=== PATIENT | female | born 1935 | race Caucasian/White ===

== ENCOUNTER → 2020-05-11 | Outpatient (CLI) | payer MEDICARE | END | disposition home or self-care (01) | LOC: Rad HDHVI 08:17 | PROVIDERS: ATTEND Internal Medicine | DX: I10 Essential (primary) hypertension (principal); R06.02 Shortness of breath | CPT/HCPCS: 93306 ==

== ENCOUNTER → 2020-05-18 | Outpatient (CLI) | payer MEDICARE ==
[~2020-05-18] VITALS: Ht 168.9 cm; Wt 62.6 kg
[~2020-05-18] MED LIST: ADENOSINE 53 MG in GIVE UN-DILUTED 0 ML IV ONE; ADENOSINE 90 MG/30 ML INJ IV ONE
== END | disposition home or self-care (01) ==
LOC: Rad HDHVI 13:51
PROVIDERS: ATTEND Internal Medicine Cardiovascular Disease
DX: I10 Essential (primary) hypertension (principal); R06.02 Shortness of breath; Z82.49 Family history of ischemic heart disease and other diseases of the circulatory system
CPT/HCPCS: 78452; 93005; 96374; 96375; A9500; J0153

== ENCOUNTER 2021-12-22 15:26 | Inpatient (IN) | payer MEDICARE, OTHER ==
[~2021-12-22] VITALS: Ht 162.6 cm; Wt 65.0 kg
[2021-12-22] MEDS ORDERED: SODIUM CHLORIDE 0.9% 1,000 ML IV ONE (16:00)
[2021-12-22] MEDS ORDERED: ASPirin 81 mg TAB PO ONE (16:00)
[2021-12-22] MEDS ORDERED: SODIUM CHLORIDE 0.9% 1,000 ML IVB ONE (16:00)
[2021-12-22 17:49] LABS: Basophils # (auto) 0 10 ^3/uL (0-0.2); Basophils % (auto) 0.5 % (0.0-2.0); Eosinophils # (auto) 0 10 ^3/uL (0-0.8); Eosinophils % (auto) 0.6 % (0.0-7.0); Hemoglobin 13.3 g/dL (12.2-16.2); Lymphocytes # (auto) 1.1 10 ^3/uL (0.4-5.4); Mean Corpuscular Hemoglobin 30.8 pg (28.0-32.0); Mean Corpuscular Hgb Conc. 33.2 g/dL (32.0-36.0); Monocytes # (auto) 0.6 10 ^3/uL (0-1.3); Monocytes % (auto) 7.6 % (0.0-12.0); Neutrophils # (auto) 5.8 10 ^3/uL (1.6-8.6); Neutrophils % (auto) 76.3 % (37.0-80.0); Red Cell Distribution Width 13.2 % (11.8-14.3); White Blood Cell 7.7 10^3/uL (4.4-10.8)
[2021-12-22 18:05] LABS: INR 1.06 (0.9-1.15); Partial Thromboplastin Time 27.8 sec (24.6-33.4)
[2021-12-22 18:07] LABS: Albumin 3.8 g/dL (3.4-5.0); Calcium 8.8 mg/dL (8.5-10.1); Magnesium 2.5 mg/dL (1.6-2.6); Potassium 4.4 mmol/L (3.5-5.1)
[2021-12-22 18:12] LABS: BUN/Creatinine Ratio 18.8; Bilirubin, Total 0.4 mg/dL (0.2-1.0); Total Protein 6.5 g/dL (6.4-8.2)
[2021-12-22] MEDS ORDERED: SODIUM CHLORIDE 0.9% 1,000 ML IV SCH (21:00)
[2021-12-22] MEDS ORDERED: ONDANSETRON HCL 4 MG/2 ML VIAL IV PRN (21:00)
[2021-12-22] MEDS ORDERED: HYDROcodone-ACET 5/325MG TAB PO PRN (21:00)
[2021-12-22] MEDS ORDERED: DOCUSATE SOD 100 MG CAP PO PRN (21:00)
[2021-12-22] MEDS ORDERED: ACETAMINOPHEN 325 MG TAB PO PRN (21:00)
[2021-12-22] MEDS ORDERED: NITROGLYCERIN 0.4 MG SL TAB SL PRN (22:00)
[2021-12-22] MEDS ORDERED: MORPHINE SULFATE INJ 2 MG/ml SYRG IV PRN (22:00)
[2021-12-23 06:07] LABS: Albumin 3.9 g/dL (3.4-5.0); Calcium 8.5 mg/dL (8.5-10.1); Potassium 3.6 mmol/L (3.5-5.1)
[2021-12-23 06:11] LABS: BUN/Creatinine Ratio 16.2; Bilirubin, Total 0.8 mg/dL (0.2-1.0); Total Protein 6.1 g/dL (6.4-8.2)
[2021-12-23 06:55] LABS: Basophils # (auto) 0 10 ^3/uL (0-0.2); Basophils % (auto) 0.4 % (0.0-2.0); Eosinophils # (auto) 0.1 10 ^3/uL (0-0.8); Eosinophils % (auto) 1.6 % (0.0-7.0); Hematocrit 38.7 % (36.0-46.0); Hemoglobin 13.5 g/dL (12.2-16.2); Lymphocytes # (auto) 2.1 10 ^3/uL (0.4-5.4); Lymphocytes % (auto) 32.1 % (10.0-50.0); Mean Corpuscular Hemoglobin 32.1 pg (28.0-32.0); Mean Corpuscular Hgb Conc. 34.8 g/dL (32.0-36.0); Mean Corpuscular Volume 92.1 fL (80.0-100.0); Monocytes # (auto) 0.6 10 ^3/uL (0-1.3); Monocytes % (auto) 8.7 % (0.0-12.0); Neutrophils # (auto) 3.7 10 ^3/uL (1.6-8.6); Neutrophils % (auto) 57.2 % (37.0-80.0); Red Blood Cells 4.21 10^6/uL (4.0-5.20); Red Cell Distribution Width 13.3 % (11.8-14.3); White Blood Cell 6.5 10^3/uL (4.4-10.8)
[2021-12-23 06:58] LABS: Nucleated Red Blood Cells % 3.7 %
[2021-12-23] MEDS: FAMOTIDINE (10MG/ML) 2ML VL IV SCH (10:14)
[2021-12-23] MEDS: ASPirin 81 mg TAB PO SCH (10:14)
[2021-12-23 11:27] LABS: Urine Bacteria MOD /hpf (None Seen); Urine Blood Negative /uL (Negative); Urine Mucus FEW (None Seen); Urine Specific Gravity 1.012 (1.001-1.035); Urine WBC 26 /hpf (0 - 5)
[2021-12-23 11:36] LABS: Alcohol, Urine < 3.0 mg/dL (0-10); Amphetamine Screen, Urine NEGATIVE (NEGATIVE); Barbiturate Scree,Urine NEGATIVE (NEGATIVE); Benzodiazephine Screen, Urine NEGATIVE (NEGATIVE); Cannabinoid Screen, Urine NEGATIVE (NEGATIVE); Cocaine Screen, Urine NEGATIVE (NEGATIVE); Opiate Scree,Urine NEGATIVE (NEGATIVE); Phencyclidine Screen, Urine NEGATIVE (NEGATIVE)
[2021-12-23] MEDS ORDERED: cefTRIAXone 1GM/50ML D5W 50 ML IV ONE (13:00)
[2021-12-23 16:35] VITALS: BP 179/98
[2021-12-23] MEDS ORDERED: CLON0.1T PO (16:56)
[2021-12-23] MEDS ORDERED: HYDR25TA5 PO (16:56)
[2021-12-23] MEDS ORDERED: DILT360C6 PO (16:56)
[2021-12-23] MEDS ORDERED: LISI20TA28 PO (16:56)
[2021-12-23] MEDS ORDERED: cloNIDine HCL 0.1 MG TAB PO ONE (17:15)
[2021-12-23] MEDS: HCTZ 25 MG TAB PO SCH (17:17)
[2021-12-23] MEDS: LISINOPRIL 20 MG TAB PO SCH (21:17)
[2021-12-23 22:00] VITALS: BP 125/57
[2021-12-24 05:00] VITALS: BP 187/93
[2021-12-24] MEDS: HCTZ 25 MG TAB PO SCH (05:15)
[2021-12-24] MEDS: LISINOPRIL 20 MG TAB PO SCH ×2 (05:16→21:32)
[2021-12-24 06:34] VITALS: BP 178/82
[2021-12-24 06:52] LABS: Calcium 8.6 mg/dL (8.5-10.1); Potassium 4.4 mmol/L (3.5-5.1)
[2021-12-24 06:56] LABS: BUN/Creatinine Ratio 18.8
[2021-12-24 09:00] VITALS: BP 198/93
[2021-12-24] MEDS: cefTRIAXone 1GM/50ML D5W 50 ML IV SCH (09:25)
[2021-12-24] MEDS: FAMOTIDINE (10MG/ML) 2ML VL IV SCH (09:25)
[2021-12-24] MEDS: ASPirin 81 mg TAB PO SCH (09:25)
[2021-12-24] MEDS: cloNIDine HCL 0.1 MG TAB PO PRN (11:49)
[2021-12-24] MEDS ORDERED: DILT-40 PO (14:13)
[2021-12-24] MEDS ORDERED: CLON0.2T PO (14:13)
[2021-12-24 17:00] VITALS: BP 132/65
[2021-12-24 23:36] VITALS: BP 167/73
[2021-12-25] MEDS: cloNIDine HCL 0.1 MG TAB PO PRN (05:38)
[2021-12-25 05:49] VITALS: BP 191/91
[2021-12-25 06:15] VITALS: BP 159/72
[2021-12-25 09:00] VITALS: BP 138/70
[2021-12-25] MEDS: cefTRIAXone 1GM/50ML D5W 50 ML IV SCH (09:00)
[2021-12-25] MEDS: HCTZ 25 MG TAB PO SCH (09:00)
[2021-12-25] MEDS: LISINOPRIL 20 MG TAB PO SCH ×2 (09:00→21:42)
[2021-12-25] MEDS: ASPirin 81 mg TAB PO SCH (09:00)
[2021-12-25 13:00] VITALS: BP 135/67
[2021-12-25 17:23] VITALS: BP 156/93
[2021-12-25 22:00] VITALS: BP 168/88
[2021-12-26] MEDS: cloNIDine HCL 0.1 MG TAB PO PRN ×2 (04:57→16:37)
[2021-12-26 05:00] VITALS: BP 191/90
[2021-12-26 08:30] VITALS: BP 148/77
[2021-12-26] MEDS: cefTRIAXone 1GM/50ML D5W 50 ML IV SCH (10:27)
[2021-12-26] MEDS: ASPirin 81 mg TAB PO SCH (10:27)
[2021-12-26] MEDS: HCTZ 25 MG TAB PO SCH (10:27)
[2021-12-26] MEDS: LISINOPRIL 20 MG TAB PO SCH ×2 (10:27→21:49)
[2021-12-26 12:35] VITALS: BP 176/96
[2021-12-26] MEDS ORDERED: IOHEXOL 350 MG/ML 100ML IJ ONE (13:12)
[2021-12-26] MEDS ORDERED: LIDOCAINE 2%HCL (LOCAL ANESTH.) INJ 20ML MDV ONE (13:12)
[2021-12-26] MEDS ORDERED: HEPARIN SODIUM (PORCINE) 5000 UNITS/ML 1ML VIAL ONE (13:14)
[2021-12-26] MEDS ORDERED: ANGIOMAX 250 MG VIAL IV ONE (13:14)
[2021-12-26] MEDS ORDERED: SODIUM CHL 0.9% 0 ML ONE (13:15)
[2021-12-26] MEDS ORDERED: VERAPAMIL 2.5MG/ML INJ 2ML VIAL IV ONE (13:15)
[2021-12-26] MEDS ORDERED: MIDAZOLAM HCL 2MG/2ML 2ml VIAL (1mg/ml) ONE (13:15)
[2021-12-26] MEDS ORDERED: fentaNYL CITRATE 100 MCG/2 ML VL ONE (13:15)
[2021-12-26 16:25] VITALS: BP 197/85
[2021-12-26 21:50] VITALS: BP 138/63
[2021-12-27 05:13] VITALS: BP 171/83
[2021-12-27] MEDS: cloNIDine HCL 0.1 MG TAB PO PRN (05:39)
[2021-12-27 05:56] LABS: BUN/Creatinine Ratio 20.2; Calcium 8.4 mg/dL (8.5-10.1)
[2021-12-27 09:00] VITALS: BP 118/61
[2021-12-27] MEDS: cefTRIAXone 1GM/50ML D5W 50 ML IV SCH (10:29)
[2021-12-27] MEDS: HCTZ 25 MG TAB PO SCH (10:30)
[2021-12-27] MEDS: LISINOPRIL 20 MG TAB PO SCH (10:31)
[2021-12-27] MEDS: ASPirin 81 mg TAB PO SCH (10:33)
[2021-12-27 13:00] VITALS: BP 129/64
[2021-12-27 17:00] VITALS: BP 145/60
== END 2021-12-27 17:30 | disposition home or self-care (01) | DRG 286 ==
LOC: EDBD 15:26 → ER 15:32 → TELE 21:50 → TELE-WESTW 12-23 11:40
PROVIDERS: ADMIT Nurse Practitioner Family; ATTEND Internal Medicine
PROC: B2111ZZ Fluoroscopy of Multiple Coronary Arteries using Low Osmolar Contrast (ICD-10-PCS; principal; 2021-12-26)
PROC: B2151ZZ Fluoroscopy of Left Heart using Low Osmolar Contrast (ICD-10-PCS; 2021-12-26)
PROC: 4A023N7 Measurement of Cardiac Sampling and Pressure, Left Heart, Percutaneous Approach (ICD-10-PCS; 2021-12-26)
DX: R00.1 Bradycardia, unspecified (principal); I50.31 Acute diastolic (congestive) heart failure; I11.0 Hypertensive heart disease with heart failure; E78.5 Hyperlipidemia, unspecified; Z20.822 Contact with and (suspected) exposure to COVID-19
CPT/HCPCS: 36415; 71045; 80048; 80053; 80307; 81001; 83735; 83880; 84439; 84443; 84484; 85025; 85610; 85730; 93005; 93306; 93458; 96361; 96365; 99152; G0378; J0696; J2250; J3490